=== PATIENT | female | born 1985 | race Two or more races ===

== ENCOUNTER 2017-12-31 08:40 | Outpatient (CLI) | payer OTHER ==
[~2017-12-31 08:40] MED LIST: GADOPENTETATE DIMEGLUMINE 5 ML VIAL IVP ONE; IOTHALAMATE MEGLUMINE 50 ML VIAL ONE
[2017-12-31] MEDS ORDERED: IOTHALAMATE MEGLUMINE 50 ML VIAL IVP ONE (10:13)
[2017-12-31] MEDS ORDERED: BUFFERED LIDOCAINE 10 ML SYRINGE IU ONE (10:13)
[2017-12-31] MEDS ORDERED: GADOPENTETATE DIMEGLUMINE 5 ML VIAL IVP ONE (10:13)
--- NOTE | 2017-12-31 11:25 | XRAY Report ---
Procedure Date: 12/31/2017 Accession Number: [id number] / [id number] Procedure: FL - Arthrogram Needle Placement CPT Code: FULL RESULT: EXAM: Left Wrist Arthrographic Injection with Fluoroscopic Guidance EXAM DATE: 12/31/2017 10:10 AM. CLINICAL HISTORY: PAIN IN LEFT WRIST. COMPARISON: None. TECHNIQUE: The risks, benefits, and alternatives of the procedure were discussed with the patient. All questions were answered. Written and verbal consent were obtained. The left radiocarpal joint was marked under fluoroscopy and prepped and draped in a sterile manner. Local anesthesia was performed with 1% lidocaine. A 22-gauge needle was then inserted into the radiocarpal joint. 2 mL of a solution containing 50 % 1% lidocaine, 50 % iodinated contrast, and a 1:200 dilution of gadolinium contrast was then injected. The needle was removed without immediate complication. Other: None. Fluoroscopy Time: 3 minutes 41 seconds. Number of Images: 0. FINDINGS: Bones and joints: No fracture or subluxation. Injection: Fluoroscopic images demonstrate needle placement and contrast in the radiocarpal joint. Unfortunately machine malfunction occurred during the examination and no fluoroscopic images could be saved. IMPRESSION: Successful fluoroscopically guided arthrographic injection of the left wrist. [facility]
--- NOTE | 2017-12-31 15:14 | MRI Report ---
Procedure Date: 12/31/2017 Accession Number: [id number] / [id number] Procedure: MRI - Arthrogram Wrist LT CPT Code: FULL RESULT: EXAM: LEFT WRIST MRI ARTHROGRAM WITH CONTRAST EXAM DATE: 12/31/2017 10:46 AM. CLINICAL HISTORY: Pain in left wrist. COMPARISON: None. TECHNIQUE: Multiplanar, multisequence T1-weighted and fluid-sensitive sequences of the wrist after an arthrographic injection of dilute gadolinium, dictated under a separate exam. Other: Sagittal images were not performed due to technical error. Motion artifact degrades image quality.. FINDINGS: Bones: No fractures or subluxations. No marrow edema. No bone lesions. Cartilage: The articular cartilage is unremarkable. The triangular fibrocartilage complex is unremarkable. Ligaments: There is widening of the scapholunate interval suggestive of a high-grade partial-thickness tear of the scapholunate ligament. The lunotriquetral ligament appears intact. Tendons: The extensor compartments I through and flexor tendons are unremarkable. Musculature: No edema or fatty atrophy. Other: The contents of the carpal tunnel, including the median nerve, are unremarkable. Guyons canal is unremarkable. No ganglion cysts. The subcutaneous tissues are unremarkable. IMPRESSION: 1. High-grade partial-thickness tear of the scapholunate ligament with slight widening of the scapholunate interval. 2. The TFC appears intact. The tendons and hyaline cartilage appear unremarkable. The patient will be recalled for sagittal images. Plan discussed with MR Olga Araya at [facility]. [facility] MUSCULOSKELETAL RADIOLOGY SECTION
== END 2017-12-31 08:41 | disposition home or self-care (01) ==
LOC: DI 08:40
PROVIDERS: ATTEND Family Medicine
DX: S63.592A Other specified sprain of left wrist, initial encounter (principal)
CPT/HCPCS: 25246; 73222; 77002; Q9961

== ENCOUNTER 2018-03-17 23:31 | Emergency (ER) | payer OTHER ==
[2018-03-17] MEDS ORDERED: SODIUM CHLORIDE 0.9% 1,000 ML IV ONE (23:59)
[2018-03-17] MEDS ORDERED: ACETAMINOPHEN 1,000 MG/100 ML 100 ML IV STA (23:59)
[2018-03-18] MEDS ORDERED: diphenhydrAMINE INJ 50 MG/ML VIAL IVP STA
[2018-03-18] MEDS ORDERED: METOCLOPRAMIDE 10 MG/2 ML VIAL IVP STA
[2018-03-18 00:38] LABS: HCG UR QUAL POSITIVE
--- NOTE | 2018-03-18 00:50 | ED Physician Documentation ---
History of Present Illness - Stated complaint Stated Complaint: HEADACHE - Chief complaint Chief Complaint: Heent - Additonal information Additional information: 32-year-old female presents the emergency department with a global headache. Th e patient's symptoms started just prior to arrival with ringing in her ears, the patient then developed photophobia which was followed by a global headache and is associated with nausea. The patient denies radiation into her neck or neck stiffness. The patient denies focal neurologic changes. No specific triggering factors. No attempts at symptom management. Symptoms are described as moderate . No other associated symptoms. Review of Systems Constitutional: denies: Fever, Chills, Fatigue Eyes: denies: Loss of vision, Decreased vision Ears: reports: Tinnitus/ringing. denies: Loss of hearing, Ear pain Nose: denies: Congestion Throat: denies: Sore throat Cardiac: denies: Chest pain / pressure Respiratory: denies: Cough GI: denies: Abdominal Pain : denies: Dysuria Skin: denies: Rash Musculoskeletal: denies: Neck pain Neurologic: reports: Headache Immunocompromised: denies: Chemotherapy PD PAST MEDICAL HISTORY - Past Medical History Past Medical History: No - Past Surgical History Past Surgical History: No - Present Medications Home Medications: Ambulatory Orders Medication Instructions Recorded Confirmed No Known Home Medications 03/18/18 03/18/18 - Allergies Allergies/Adverse Reactions: Allergies Allergy/AdvReac Type Severity Reaction Status Date / Time No Known Drug Allergies Allergy Verified 03/18/18 00:12 - Social History Does the pt smoke?: Yes Smoking Status: Current every day smoker Does the pt drink ETOH?: No Does the pt have substance abuse?: No - Immunizations Immunizations are current?: Yes - POLST Patient has POLST: No PD ED PE NORMAL - General General: Alert and oriented X 3, No acute distress - HEENT HEENT: Atraumatic, PERRL, EOMI, Ears normal, Moist mucous membranes, Pharynx benign - Neck Neck: Supple, no meningeal sign - Cardiac Cardiac: RRR, Strong equal pulses - Respiratory Respiratory: No respiratory distress, Clear bilaterally - Derm Derm: Normal color - Extremities Extremities: No deformity, No edema - Neuro Neuro: Alert and oriented X 3, senior game advisor 2-12 intact, No motor deficit, No sensory deficit, Normal speech - Psych Psych: Normal affect Results - Vitals Vitals: Vital Signs - 24 hr 03/17/18 03/18/18 03/18/18 23:35 00:35 01:55 Temperature 36.8 C 36.5 C Heart Rate 112 H 77 77 Respiratory 18 16 16 Rate Blood Pressure 165/105 H 119/64 116/77 O2 Saturation 99 98 98 Oxygen O2 Source Room air - Labs Labs: Laboratory Tests 03/18/18 00:30 Ur Specific [place] 1.015 Urine HCG, Qual POSITIVE - Rads (name of study) CT head Radiology: Final report received, See rad report (IMPRESSION: Normal head CT. ) PD MEDICAL DECISION MAKING - ED course ED course: On reevaluation the patient's symptoms are under much better control. Since, the CT scan was performed within 6 hours of symptom onset the CT scan is sufficient to rule out subarachnoid hemorrhage. Currently, I do not think a lumbar puncture would be of much utility since meningitis and subarachnoid hemorrhage are unlikely, Since the patient is low risk. The patient was found to be incidentally. The patient is having no vaginal bleeding or abdominal pain necessitating further workup in the emergency department. Presently, the patient appears appropriate for discharge and ongoing outpatient management. I discussed with the patient and family the findings they understand and agree. I discussed warning signs and recommended returning to the emergency department immediately for worsening or any concerns. Departure - Departure Disposition: 01 Home, Self Care Clinical Impression: Headache Qualifiers: Headache type: other headache syndrome Qualified Code(s): G44.89 - Other headache syndrome Tinnitus Qualifiers: Laterality: unspecified laterality Qualified Code(s): H93.19 - Tinnitus, unspecified ear Qualifiers: Weeks of gestation: unspecified Qualified Code(s): Z34.90 - Encounter for supervision of normal , unspecified, unspecified trimester Condition: Good Instructions: Preg 1st Trimester, Preg 1st Trimester Coping, Preg Common Questions, Tinnitus, Headache Pain Follow-Up: CHARITY BRADLEY MD [Primary Care Provider] - Within 3 Days Comments: Please return to the emergency department for worsening symptoms or any concerns
--- NOTE | 2018-03-18 01:48 | CT Report ---
Reason: PERALTA Procedure Date: 03/18/2018 Accession Number: [id number] / [id number] Procedure: CT - Head W/O CPT Code: FULL RESULT: EXAM: CT HEAD EXAM DATE: 03/18/2018 01:01 AM. CLINICAL HISTORY: Headache COMPARISON: None. TECHNIQUE: Multiaxial CT images were obtained from the foramen magnum to the vertex. Reformats: Sagittal and coronal. IV contrast: None. In accordance with CT protocol optimization, one or more of the following dose reduction techniques were utilized for this exam: automated exposure control, adjustment of mA and/or KV based on patient size, or use of iterative reconstructive technique. FINDINGS: Parenchyma: No intraparenchymal hemorrhage. No evidence of mass, midline shift, or CT findings of infarction. Porter-white differentiation is distinct. Extraaxial Spaces: Normal for age. No subdural or epidural collections identified. Ventricles: Normal in size and position. Sinuses and Orbits: Imaged paranasal sinuses, orbits, and mastoids show no significant abnormality. Bones: No evidence of fracture or calvarial defect. Other: None. IMPRESSION: Normal head CT. [facility]
[2018-03-18 02:02] VITALS: BP 116/77
== END 2018-03-18 02:00 | disposition home or self-care (01) ==
LOC: ED 23:31
DX: G44.89 Other headache syndrome (principal); H93.19 Tinnitus, unspecified ear; F17.200 Nicotine dependence, unspecified, uncomplicated; Z33.1 Pregnant state, incidental
CPT/HCPCS: 70450; 81025; 96374; 96375; 99283; J0131; J1200; J2765